=== PATIENT | male | born 1970 | race Two or more races ===

== ENCOUNTER 2024-02-04 11:56 | Emergency (ER) | payer MEDICAID, SELFPAY ==
[~2024-02-04] VITALS: Ht 177.8 cm; Wt 79.5 kg
[~2024-02-04 11:56] MED LIST: NOCURR
[2024-02-04 12:04] VITALS: TEMP 98.9
[2024-02-04] MEDS ORDERED: HYDR25TA PO (12:04)
[2024-02-04] MEDS ORDERED: IBUP-1492 PO (12:25)
[2024-02-04] MEDS ORDERED: AMOX-457 PO (12:25)
[2024-02-04] MEDS: IBUPROFEN 600 MG TABLET PO ONE (12:30)
[2024-02-04] MEDS: AMOX TR/POT CLAV 875 MG/125 MG TABLET PO ONE (12:30)
[2024-02-04 12:45] VITALS: BP 119/64; PULSE 79; RESP 17; O2SAT 98
== END 2024-02-04 13:16 | disposition home or self-care (01) ==
LOC: EMS 11:58
DX: K04.7 Periapical abscess without sinus (principal); I10 Essential (primary) hypertension; Z79.899 Other long term (current) drug therapy
CPT/HCPCS: 99283